=== PATIENT | male | born 1990 | race Caucasian/White ===

== ENCOUNTER 2020-12-07 18:18 | Emergency (ER) | payer MEDICAID ==
[~2020-12-07] VITALS: Ht 180.3 cm; Wt 79.0 kg
[2020-12-07 19:01] VITALS: BP 110/78
== END 2020-12-07 19:41 | disposition home or self-care (01) ==
LOC: ER 18:20
DX: B34.9 Viral infection, unspecified (principal); Z20.822 Contact with and (suspected) exposure to COVID-19; R05 Cough; R53.83 Other fatigue; F17.200 Nicotine dependence, unspecified, uncomplicated
CPT/HCPCS: 87635; 99283; C9803